=== PATIENT | female | born 1955 ===

== ENCOUNTER 2017-01-21 08:23 | Emergency (ER) | payer OTHER ==
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
[2017-01-21] MEDS ORDERED: traMADol 50 MG Tab PO ONE (08:46)
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
[2017-01-21] MEDS ORDERED: Diphtheria,Pertussis(Acell),Tetanus Vaccine 0.5 ML SDV IM ONE (09:46)
[2017-01-21] MEDS ORDERED: Ketorolac 30 MG/ML SDV IM ONE (09:49)
== END 2017-01-21 10:10 | disposition home or self-care (01) ==
LOC: DL.ED 08:23
DX: S06.0X0A Concussion without loss of consciousness, initial encounter (principal); S00.01XA Abrasion of scalp, initial encounter; S00.05XA Superficial foreign body of scalp, initial encounter; E66.9 Obesity, unspecified; Z68.41 Body mass index [BMI] 40.0-44.9, adult; Z23 Encounter for immunization; Z87.891 Personal history of nicotine dependence; V49.9XXA Car occupant (driver) (passenger) injured in unspecified traffic accident, initial encounter
CPT/HCPCS: 70450; 90471; 90715; 96372; 99284; A9270; J1885